=== PATIENT | female | born 1990 ===

== ENCOUNTER 2021-10-02 12:06 | Inpatient (IN) | payer OTHER ==
[~2021-10-02] VITALS: Ht 157.5 cm; Wt 63.8 kg
[2021-10-02] MEDS ORDERED: DIAZEPAM 5 MG/ML 2 ML SYRINGE IM ONE (13:30)
[2021-10-02] MEDS ORDERED: DiphenhydrAMINE HCL 50 MG/ML VIAL IM ONE (13:30)
[2021-10-02] MEDS ORDERED: HALOPERIDOL LACTATE 5 MG/ML VIAL IM ONE (13:30)
[2021-10-02 14:23] LABS: BASOPHILS % (AUTO) 1.1 % (0.0-2.0); EOSINOPHILS % (AUTO) 0.5 % (1.0-6.0); HEMATOCRIT 32.7 % (36-46); HEMOGLOBIN 11.1 g/dL (12.0-16.0); LYMPHOCYTES % (AUTO) 15.6 % (22.0-44.0); MEAN CORPUSCULAR HEMOGLOBIN 26.2 pg (26.0-34.0); MEAN CORPUSCULAR VOLUME 77 fL (80-100); MONOCYTES % (AUTO) 7.9 % (2.0-9.0); NEUTROPHILS # (AUTO) 9.9 K/uL (1.8-7.7); NEUTROPHILS % (AUTO) 74.9 % (40.0-70.0); PLATELET COUNT (AUTO) 349 K/uL (150-450); RED BLOOD CELL COUNT(AUTO) 4.24 MIL/uL (4.00-5.20); RED CELL DISTRIBUTION WIDTH 14.3 % (11.5-14.5)
[2021-10-02 14:33] LABS: ANION GAP 15 mmol/L (8-16); CALCIUM, TOTAL 8.9 mg/dL (8.8-10.5); CARBON DIOXIDE 20 mmol/L (22-29); CHLORIDE 98 mmol/L (98-107); CREATININE 0.77 mg/dL (0.60-1.30); GLOMERULAR FILTR. RATE CALC > 60 mL/min (>60); GLUCOSE,RANDOM 81 mg/dL (70-110); POTASSIUM 3.4 mmol/L (3.5-5.1); SODIUM SERUM 133 mmol/L (136-145); UREA NITROGEN, BLOOD 9 mg/dL (7-18)
[2021-10-02 14:38] LABS: ALANINE AMINOTRANSFERASE 65 U/L (12-78); ALBUMIN 3.7 g/dL (3.4-5.0); ALKALINE PHOSPHATASE 94 U/L (46-116); ASPARTATE AMINOTRANSFERASE 81 U/L (15-37); BILIRUBIN,TOTAL 0.5 mg/dL (0.1-1.0); TOTAL PROTEIN, SERUM 7.3 g/dL (6.4-8.2)
[2021-10-02 15:18] LABS: COVID AG,FIA SOURCE NASAL SWAB
[2021-10-02] MEDS ORDERED: ZOLPIDEM TARTRATE 10 MG TABLET PO PRN (18:45)
[2021-10-02] MEDS ORDERED: HALOPERIDOL 5 MG TABLET PO PRN (18:45)
[2021-10-02] MEDS ORDERED: LORazepam 2 MG TABLET PO PRN (18:45)
[2021-10-02 18:50] LABS: AMPHET/METH SCREEN,URINE NEGATIVE (NEGATIVE); BARBITURATE SCREEN, URINE NEGATIVE (NEGATIVE); BENZODIAZEPINES SCREEN,URINE NEGATIVE (NEGATIVE); CANNABINOID SCREEN,URINE POSITIVE (NEGATIVE); COCAINE SCREEN,URINE NEGATIVE (NEGATIVE); METHADONE SCREEN, URINE NEGATIVE (NEGATIVE); OPIATE SCREEN,URINE NEGATIVE (NEGATIVE)
[2021-10-02 18:51] LABS: PHENCYCLIDINE SCREEN,URINE NEGATIVE (NEGATIVE)
[2021-10-03] MEDS ORDERED: DiphenhydrAMINE HCL 50 MG/ML VIAL IM ONE
[2021-10-03] MEDS ORDERED: HALOPERIDOL LACTATE 5 MG/ML VIAL IM ONE
[2021-10-03] MEDS ORDERED: LORazepam 2 MG/ML VIAL IM ONE
[2021-10-03 00:33] VITALS: BP 116/74
[2021-10-03] MEDS: RisperiDONE 2 MG TABLET PO SCH ×2 (10:30→20:20)
[2021-10-03] MEDS ORDERED: MAG HYDROX/AL HYDROX/SIMETH ES 30 ML SUSPENSION UDCUP PO PRN (10:30)
[2021-10-03] MEDS ORDERED: ALBUTEROL SULFATE HFA 90 MCG/PUFF 8 GM INHALER IH PRN (10:30)
[2021-10-03] MEDS ORDERED: IBUPROFEN 400 MG TABLET PO PRN (10:30)
[2021-10-03] MEDS ORDERED: ACETAMINOPHEN 325 MG TABLET PO PRN (10:30)
[2021-10-03] MEDS ORDERED: ONDANSETRON HCL 4 MG TABLET PO PRN (10:30)
[2021-10-03] MEDS ORDERED: PETROLATUM,WHITE 28 GM JELLY TP PRN (10:30)
[2021-10-03] MEDS ORDERED: LOPERAMIDE HCL 2 MG CAPSULE PO PRN (10:30)
[2021-10-03] MEDS ORDERED: CloNIDine HCL 0.1 MG TABLET PO PRN (10:30)
[2021-10-03] MEDS ORDERED: GuaiFENesin/D-METHORPHAN [SUGAR-FREE] 200-20MG/10 ML SYRUP UDCUP PO PRN (10:30)
[2021-10-03] MEDS ORDERED: NICOTINE 14 MG/24 HOUR PATCH TD PRN (10:30)
[2021-10-03] MEDS ORDERED: DOCUSATE SODIUM 100 MG CAPSULE PO PRN (10:30)
[2021-10-03] MEDS ORDERED: MAGNESIUM HYDROXIDE SUSPENSION 30 ML UDCUP PO PRN (10:30)
[2021-10-03 10:51] VITALS: BP 101/73
[2021-10-03 16:26] VITALS: BP 142/73
[2021-10-04] MEDS ORDERED: POTASSIUM CHLORIDE 20 MEQ ER TABLET PO ONE (06:15)
[2021-10-04] MEDS: RisperiDONE 2 MG TABLET PO SCH ×2 (07:33→20:57)
[2021-10-04 08:11] VITALS: BP 123/69
[2021-10-04 10:43] LABS: CHOL/HDL RATIO 2.1 (3.9-5.7); POTASSIUM 4.3 mmol/L (3.5-5.1); THYROID STIMULATING HORMONE 0.55 uIU/mL (0.36-3.74)
[2021-10-04 16:11] VITALS: BP 112/70
[2021-10-04 16:42] LABS: BILIRUBIN,URINE NEGATIVE (NEGATIVE); GLUCOSE, URINE (UA) NEGATIVE (NEGATIVE); KETONES,URINE NEGATIVE (NEGATIVE); LEUKOCYTE ESTERASE ,URINE SMALL (NEGATIVE); NITRATE,URINE NEGATIVE (NEGATIVE); OCCULT BLOOD,URINE LARGE (NEGATIVE); PROTEIN,URINE NEGATIVE (NEGATIVE); SPECIFIC GRAVITIY, URINE 1.002 (1.003-1.030); UROBILINOGEN,URINE <=1.0 mg/dL (<=1.0)
[2021-10-04 16:43] LABS: APPEARANCE,URINE HAZY (CLEAR)
[2021-10-04 17:00] LABS: SQUAMOUS EPITHELIAL CELL,UR Few /LPF (None Seen)
[2021-10-04 17:04] LABS: BACTERIA,URINE Few /HPF (None Seen)
[2021-10-05] MEDS: RisperiDONE 2 MG TABLET PO SCH ×2 (08:17→20:46)
[2021-10-05 08:42] VITALS: BP 110/69
[2021-10-05 16:29] VITALS: BP 115/75
[2021-10-05 20:24] VITALS: BP 104/77
[2021-10-06 08:00] VITALS: BP 117/78
[2021-10-06] MEDS: RisperiDONE 2 MG TABLET PO SCH ×2 (09:00→20:09)
[2021-10-06] MEDS ORDERED: DiphenhydrAMINE HCL 50 MG/ML VIAL IM ONE (16:00)
[2021-10-06] MEDS ORDERED: ChlorproMAZINE HCL 50 MG/2 ML AMP IM ONE (16:00)
[2021-10-06] MEDS ORDERED: LORazepam 2 MG/ML VIAL IM ONE (16:00)
[2021-10-06] MEDS ORDERED: DiphenhydrAMINE HCL 50 MG/ML VIAL ONE (16:02)
[2021-10-06] MEDS ORDERED: ChlorproMAZINE HCL 50 MG/2 ML AMP ONE (16:02)
[2021-10-07] MEDS: RisperiDONE 2 MG TABLET PO SCH ×2 (08:34→20:19)
[2021-10-07 11:21] VITALS: BP 126/80
[2021-10-07 16:13] VITALS: BP 152/91
[2021-10-08] MEDS: RisperiDONE 2 MG TABLET PO SCH ×2 (07:40→20:40)
[2021-10-08 08:08] VITALS: BP 134/74
[2021-10-08] MEDS ORDERED: DiphenhydrAMINE HCL 50 MG/ML VIAL ONE (20:09)
[2021-10-08] MEDS ORDERED: HALOPERIDOL LACTATE 5 MG/ML VIAL ONE (20:09)
[2021-10-08] MEDS ORDERED: HALOPERIDOL LACTATE 5 MG/ML VIAL IM ONE (20:15)
[2021-10-08] MEDS ORDERED: LORazepam 2 MG/ML VIAL IM ONE (20:15)
[2021-10-08] MEDS ORDERED: DiphenhydrAMINE HCL 50 MG/ML VIAL IM ONE (20:15)
[2021-10-09] MEDS: RisperiDONE 2 MG TABLET PO SCH ×2 (08:15→21:00)
[2021-10-09 08:55] VITALS: BP 147/61
[2021-10-09 16:01] VITALS: BP 131/67
[2021-10-09 20:56] VITALS: BP 134/72
[2021-10-10 08:07] VITALS: BP 144/81
[2021-10-10] MEDS: RisperiDONE 2 MG TABLET PO SCH ×2 (08:12→21:00)
[2021-10-10 16:28] VITALS: BP 133/81
[2021-10-11] MEDS ORDERED: ChlorproMAZINE HCL 50 MG/2 ML AMP ONE (01:25)
[2021-10-11] MEDS ORDERED: DiphenhydrAMINE HCL 50 MG/ML VIAL ONE (01:25)
[2021-10-11] MEDS ORDERED: DiphenhydrAMINE HCL 50 MG/ML VIAL IM ONE (01:30)
[2021-10-11] MEDS ORDERED: LORazepam 2 MG/ML VIAL IM ONE (01:30)
[2021-10-11] MEDS ORDERED: ChlorproMAZINE HCL 50 MG/2 ML AMP IM ONE (01:30)
[2021-10-11] MEDS: RisperiDONE 2 MG TABLET PO SCH ×2 (08:45→20:36)
[2021-10-11 16:20] VITALS: BP 108/65
[2021-10-12 08:36] VITALS: BP 151/80
[2021-10-12] MEDS: RisperiDONE 2 MG TABLET PO SCH ×2 (09:00→20:13)
[2021-10-12 15:07] LABS: COVID AG,FIA SOURCE NASOPHARYNGEAL
[2021-10-12 16:06] VITALS: BP 100/71
[2021-10-13] MEDS: RisperiDONE 2 MG TABLET PO SCH (08:03)
[2021-10-13 08:34] VITALS: BP 161/95
== END 2021-10-13 18:23 | disposition home or self-care (01) | DRG 885 ==
LOC: EMS 12:06 → 3EC 18:27
PROVIDERS: ADMIT Psychiatry & Neurology Psychiatry; ATTEND Psychiatry & Neurology Psychiatry
DX: F25.0 Schizoaffective disorder, bipolar type (principal); F12.10 Cannabis abuse, uncomplicated; E87.6 Hypokalemia; D72.829 Elevated white blood cell count, unspecified; D64.9 Anemia, unspecified; Z20.822 Contact with and (suspected) exposure to COVID-19; Z79.899 Other long term (current) drug therapy
CPT/HCPCS: 80053; 80061; 81001; 83036; 84132; 84443; 84703; 85025; 99291; G0480; J1200; J1630; J2060; J3230

== ENCOUNTER 2021-10-13 20:47 | Emergency (ER) | payer OTHER ==
[~2021-10-13] VITALS: Ht 160 cm; Wt 64.5 kg
[2021-10-13 22:34] LABS: BASOPHILS % (AUTO) 0.6 % (0.0-2.0); EOSINOPHILS % (AUTO) 2.4 % (1.0-6.0); HEMATOCRIT 35.3 % (36-46); HEMOGLOBIN 11.8 g/dL (12.0-16.0); LYMPHOCYTES # (AUTO) 2.6 K/uL (1.0-4.8); LYMPHOCYTES % (AUTO) 28.3 % (22.0-44.0); MEAN CORPUSCULAR HEMOGLOBIN 26.6 pg (26.0-34.0); MEAN CORPUSCULAR HGB CONC 33.3 G/dL (31.0-37.0); MEAN CORPUSCULAR VOLUME 80 fL (80-100); MONOCYTES # (AUTO) 0.7 K/uL (0.1-1.0); MONOCYTES % (AUTO) 7.9 % (2.0-9.0); NEUTROPHILS # (AUTO) 5.7 K/uL (1.8-7.7); NEUTROPHILS % (AUTO) 60.8 % (40.0-70.0); PLATELET COUNT (AUTO) 377 K/uL (150-450); RED BLOOD CELL COUNT(AUTO) 4.42 MIL/uL (4.00-5.20); RED CELL DISTRIBUTION WIDTH 15.5 % (11.5-14.5)
[2021-10-13 22:43] LABS: ANION GAP 11 mmol/L (8-16); CARBON DIOXIDE 24 mmol/L (22-29); CHLORIDE 102 mmol/L (98-107); CREATININE 0.65 mg/dL (0.60-1.30); GLOMERULAR FILTR. RATE CALC > 60 mL/min (>60); GLUCOSE,RANDOM 109 mg/dL (70-110); POTASSIUM 3.3 mmol/L (3.5-5.1); SODIUM SERUM 137 mmol/L (136-145); UREA NITROGEN, BLOOD 7 mg/dL (7-18)
[2021-10-13 22:57] LABS: ALANINE AMINOTRANSFERASE 40 U/L (12-78); ALBUMIN 3.7 g/dL (3.4-5.0); ALKALINE PHOSPHATASE 83 U/L (46-116); ASPARTATE AMINOTRANSFERASE 28 U/L (15-37); BILIRUBIN,TOTAL 0.3 mg/dL (0.1-1.0); TOTAL PROTEIN, SERUM 7.3 g/dL (6.4-8.2)
[2021-10-13 23:12] LABS: COVID AG,FIA SOURCE NASOPHARYNGEAL
[2021-10-13 23:30] LABS: HCG,QUANTITATIVE < 1 mIU/mL (0-6)
[2021-10-14 07:56] VITALS: BP 118/66
== END 2021-10-14 08:30 | disposition short-term general hospital (02) ==
LOC: EMS 20:47
DX: F25.0 Schizoaffective disorder, bipolar type (principal); F31.9 Bipolar disorder, unspecified; Z79.899 Other long term (current) drug therapy
CPT/HCPCS: 99285; 87426; 80053; 84702; 85025; G0480

== ENCOUNTER 2022-09-12 23:48 | Emergency (ER) | payer OTHER ==
[~2022-09-12] VITALS: Ht 154.9 cm; Wt 57.0 kg
[2022-09-13 01:08] VITALS: TEMP 98.8
[2022-09-13] MEDS ORDERED: LORazepam 2 MG/ML VIAL IM ONE ×2 (01:15→16:45)
[2022-09-13] MEDS ORDERED: DiphenhydrAMINE HCL 50 MG/ML VIAL IM ONE ×2 (01:15→16:45)
[2022-09-13] MEDS ORDERED: HALOPERIDOL LACTATE 5 MG/ML VIAL IM ONE ×2 (01:15→16:45)
[2022-09-13 02:16] LABS: BASOPHILS % (AUTO) 0.7 % (0.0-2.0); EOSINOPHILS % (AUTO) 1.3 % (1.0-6.0); HEMATOCRIT 32.8 % (36-46); HEMOGLOBIN 10.9 g/dL (12.0-16.0); LYMPHOCYTES # (AUTO) 2.3 K/uL (1.0-4.8); LYMPHOCYTES % (AUTO) 18.8 % (22.0-44.0); MEAN CORPUSCULAR HEMOGLOBIN 26.8 pg (26.0-34.0); MEAN CORPUSCULAR HGB CONC 33.3 G/dL (31.0-37.0); MEAN CORPUSCULAR VOLUME 80 fL (80-100); MONOCYTES # (AUTO) 1.2 K/uL (0.1-1.0); MONOCYTES % (AUTO) 9.7 % (2.0-9.0); NEUTROPHILS # (AUTO) 8.4 K/uL (1.8-7.7); NEUTROPHILS % (AUTO) 69.5 % (40.0-70.0); PLATELET COUNT (AUTO) 346 K/uL (150-450); RED BLOOD CELL COUNT(AUTO) 4.08 MIL/uL (4.00-5.20); RED CELL DISTRIBUTION WIDTH 15.3 % (11.5-14.5)
[2022-09-13 02:27] LABS: ANION GAP 13 mmol/L (8-16); CALCIUM, TOTAL 8.7 mg/dL (8.8-10.5); CARBON DIOXIDE 23 mmol/L (22-29); CHLORIDE 101 mmol/L (98-107); CREATININE 0.63 mg/dL (0.60-1.30); GLOMERULAR FILTR. RATE CALC > 60 mL/min (>60); GLUCOSE,RANDOM 82 mg/dL (70-110); POTASSIUM 3.2 mmol/L (3.5-5.1); SODIUM SERUM 137 mmol/L (136-145)
[2022-09-13 02:32] LABS: ALANINE AMINOTRANSFERASE 47 U/L (12-78); ALBUMIN 3.4 g/dL (3.4-5.0); ALKALINE PHOSPHATASE 72 U/L (46-116); ASPARTATE AMINOTRANSFERASE 56 U/L (15-37); BILIRUBIN,TOTAL 0.7 mg/dL (0.1-1.0); TOTAL PROTEIN, SERUM 6.6 g/dL (6.4-8.2)
[2022-09-13] MEDS ORDERED: POTASSIUM CHLORIDE 20 MEQ ER TABLET PO ONE ×2 (05:30→07:00)
[2022-09-13 07:18] LABS: COVID AG,FIA SOURCE NASAL SWAB
[2022-09-13] MEDS ORDERED: ZOLPIDEM TARTRATE 10 MG TABLET PO PRN (09:00)
[2022-09-13] MEDS ORDERED: QUEtiapine FUMARATE 100 MG TABLET PO PRN (09:00)
[2022-09-13] MEDS ORDERED: LORazepam 2 MG TABLET PO PRN (09:00)
[2022-09-13 17:51] VITALS: BP 115/81; PULSE 81; RESP 17
== END 2022-09-13 18:03 | disposition short-term general hospital (02) ==
LOC: EMS 23:50
DX: F25.0 Schizoaffective disorder, bipolar type (principal); E87.6 Hypokalemia; Z20.822 Contact with and (suspected) exposure to COVID-19
CPT/HCPCS: 99285; 87426; 80053; 84702; 85025; 36415; 96372; G0480; J1200; J1630; J2060